=== PATIENT | male | born 2000 | race African-American/Black ===

== ENCOUNTER 2022-09-07 12:04 | Emergency (ER) | payer SELFPAY ==
[~2022-09-07] VITALS: Ht 188 cm; Wt 88.0 kg
[2022-09-07 12:05] VITALS: BP 128/71; TEMP 97.9; O2SAT 97
== END 2022-09-07 13:03 | disposition home or self-care (01) ==
LOC: ER 12:08
DX: S51.811D Laceration without foreign body of right forearm, subsequent encounter (principal); Z60.2 Problems related to living alone; W25.XXXD Contact with sharp glass, subsequent encounter